=== PATIENT | female | born 1965 | race African-American/Black ===

== ENCOUNTER 2018-03-30 13:42 | Day surgery (SDC) | payer SELFPAY ==
[2018-03-26 15:11] VITALS: BMI 25.7
[2018-03-30] MEDS: HYDROmorphone HCL CARPU-JECT 1 MG/1 ML DISP.SYRIN IVPUSH PRN ×3 (13:30→14:18)
[~2018-03-30 13:42] MED LIST: BACITRACIN 15 GM TUBE TOPICAL OINTMENT ONE; BUPIVACAINE HCL/PF 2.5 MG/ML - 30 ML VIAL IJ ONE; DEXAMETHASONE SOD PHOSPHATE 4 MG/1 ML VIAL ONE; EPINEPHrine/PF 1 MG/1 ML (1:1,000) AMPULE ONE; GLYCOPYRROLATE 0.2 MG/1 ML VIAL ONE; HALOPERIDOL LACTATE 5 MG/ML ONE; HEPARIN NA (PORCINE) 5,000 UNITS/ML 1ML VIAL ONE; HYDROmorphone HCL 0.5 MG/0.5 ML SYRINGE ONE; LACTATED RINGERS SOLUTION 1,000 ML IV SCH; LIDOCAINE HCL 1%, 10 MG/ML (20ML VIAL) ONE; LIDOCAINE HCL 2% JELLY (5 ML/TUBE) ONE; LIDOCAINE HCL/PF 2% SDV 5ML VIAL ONE; MIDAZOLAM HCL 2 MG/2 ML SINGLE DOSE VIAL ONE; NEOSTIGMINE METHYLSULFATE 0.5 MG/ML - 10 ML MDV ONE; ONDANSETRON 4 MG/2 ML VIAL IVPB PRN; ONDANSETRON 4 MG/2 ML VIAL IVPUSH PRN; ONDANSETRON 4 MG/2 ML VIAL ONE; PROMETHAZINE HCL 25 MG/1 ML VIAL IVPUSH PRN; PROPOFOL 20 ML ONE; ROCURONIUM BROMIDE 50 MG/5 ML VIAL ONE; SUCCINYLCHOLINE CHLORIDE 200 MG/10 ML VIAL ONE; ceFAZolin SODIUM 1 GM VIAL ONE; fentaNYL CITRATE 250 MCG/5 ML VIAL ONE; morphine CARPU-JECT 10 MG/1 ML DISP.SYRIN IVPUSH PRN
--- NOTE | 2018-03-30 13:44 | OP ---
Operative Note - Note: Operative Date: 03/30/18 Pre-Operative Diagnosis: abdominal deformity Operation: abdominoplasty with liposuction Post-Operative Diagnosis: Same as Pre-op Anesthesia: General
[2018-03-30] MEDS ORDERED: LACTATED RINGERS SOLUTION 1,000 ML IV SCH (13:45)
[2018-03-30] MEDS ORDERED: HYDROmorphone HCL 0.5 MG/0.5 ML SYRINGE ONE ×2 (14:06→14:17)
[2018-03-30] MEDS: morphine SULFATE 4 MG/ML VIAL IVPUSH PRN ×2 (17:17→21:45)
[2018-03-30] MEDS: oxyCODONE HCL 5 MG TABLET PO PRN (19:59)
--- NOTE | 2018-03-30 20:29 | OP ---
DATE OF OPERATION: 03/30/2018 TITLE OF PROCEDURE: Abdominoplasty with bilateral flank liposuction. PREOPERATIVE DIAGNOSIS: Abdominal upper dystrophy with . POSTOPERATIVE DIAGNOSIS: Abdominal upper dystrophy with . DESCRIPTION OF PROCEDURE: The patient is seen in the holding area, awake, aware of all incisions and resulting scars. Risks, benefits, and alternatives are discussed at length, and agreed to proceed. Patient is given 5000 units of subcutaneous heparin preoperatively. 1 g of Ancef is given preoperatively. She is given ROB hose and sequential compression stockings in the holding area. Brought to the operating room, placed in a supine position. Position is carefully checked by surgical and anesthesia teams. She is prepped and draped in standard surgical fashion. A timeout is called. Patient, procedure, side and sites are verified. The procedure is as follows. An incision is made along the infra-pannicular crease, the inferior border of the marked area. Dissection carried down to the level of the abdominal wall fascia where dissection is then carried along the abdominal wall fascia where perforating blood vessels are ligated. The dissection is carried to the level of the umbilicus. The umbilicus is then circumcised and developed on a fiber fatty stalk to the level of the abdominal wall fascia. Dissection carried superior to the umbilicus, the costal margins on either side, and xiphoid process in the midline. Midline plication is then performed with a series of interrupted buried gknkux-ca-swipy number 1 Prolene, both above and below the umbilicus. A second layer of running, locking number 1 Prolene suture is also placed to reinforce the initial plication. At completion of this, the abdominoplasty flap is then trimmed of sub Hawk's underlying fat. A smooth, even contour is assured. The hemostasis meticulously achieved. The wounds are copiously irrigated with normal saline, after which a second round of hemostasis is performed. When the wound is dry, the patient is brought to a 30-degree flexed position where the excess skin and fat of the abdominoplasty flap is excised. The skin is tailor tacked. The umbilicus is marked. The umbilicus is then converted into a Star Trek pattern, where the translocation defect is excised as a Star Trek pattern with an inferior 6 o'clock flap. The inferior 6 o'clock flap of the translocation defect is then inset into the 6 o'clock notch of the umbilicus with a 4-0 nylon suture. The apices are closed with a series of interrupted 4-0 nylon suture. The remainder of the umbilicus is then closed with a buried dermal 3-0 Monocryl suture followed by a running 5-0 nylon suture. Size 10 flat ELIZABETH drains are brought out through points of the abdominal incision. The right more drain is in the superior recess. The wound on the left drain is in the inferior recess of the wound. Prior to closure, a wetting solution is infiltrated to bilateral flank. A total of 200 mL of wetting solution, which is a liter of normal saline, 1 ampule 1:100,000 epinephrine, and 20 mL of 1% lidocaine plain. After waiting 20 minutes, liposuction is performed, using a traditional liposuction technique with a 4-mm cannula on either flank. 200 mL of lipoaspirate is yielded from the left flank, which is larger, and 175 mL of lipoaspirate is yielded from the right flank. The closure is performed and had been performed during the time while awaiting for the wetting solution of the liposuction to work. This is done with a series of superficial fascial system, 2-0 Vicryl buried sutures followed by a series of interrupted buried deep dermal 3-0 Monocryl suture, followed by a running V-Loc suture within the mid dermis. The drains were secured with 2-0 silk drain sutures. All incisions are pink and viable. Drains are placed to bulb suction. The dressings were applied with Steri-Strips, ABD gauze, and abdominal binder is applied, and patient is transferred to recovery without complication in a flexed position. Rip [id number]
[2018-03-31] MEDS: oxyCODONE HCL 5 MG TABLET PO PRN ×2 (03:51→07:17)
[2018-03-31 06:10] VITALS: BP 130/80; PULSE 82; TEMP 98
[2018-03-31] MEDS ORDERED: diphenhydrAMINE HCL 25 MG CAPSULE (FP) PO ONE (06:45)
[2018-03-31] MEDS ORDERED: HEPARIN NA (PORCINE) 5,000 UNITS/ML 1ML VIAL SQ ONE (07:03)
--- NOTE | 2018-03-31 07:06 | PN ---
Progress Note (short form) - Note Progress Note: POD 1 All tissues viable, no collection VSS AF Ambulating Carmen PO OK for d/c home
[2018-03-31] MEDS ORDERED: CEFAZOLIN 1 GM/D5W 1 GM/50 ML BAG IVPB SCH (09:00)
--- NOTE | 2018-04-01 14:59 | PATH ---
Surgical Pathology Report Patient Name: KWADWO POOLE Med. Rec. #: [id number] /Age/Gender: 1965 (Age: 52) / F Account: <[id number]> Location: [facility] MED-SURG Taken: 03/30/2018 Received: 03/30/2018 Reported: 04/01/2018 Physicians: Vini Morrison Specimen(s) Received ABDOMINAL SKIN AND TISSUE Clinical History Cosmetic Final Diagnosis ABDOMINAL SKIN AND TISSUE ABDOMINOPLASTY: SKIN ADIPOSE TISSUE, DESCRIBED (GROSS EXAMINATION ONLY). Electronically Signed Ember Fonseca M.D. Gross Description Received in formalin labeled "abdominal skin and tissue," is a 1204 g, 42.0 x 20.0 x 3.5 cm aggregate of 2 holley, triangular, unoriented portions of unremarkable skin with underlying yellow, lobulated adipose tissue. Sectioning reveals unremarkable adipose tissue. No lesions are identified. No sections are submitted, gross only. 03/31/2018 saudi03/31/2018
== END 2018-03-31 08:55 | disposition home or self-care (01) ==
LOC: FASU 13:42 → FM/S 13:42 → FASU 03-31 08:55
PROVIDERS: ATTEND Plastic Surgery
PROC: 0J080ZZ Alteration of Abdomen Subcutaneous Tissue and Fascia, Open Approach (ICD-10-PCS; principal; 2018-03-30 09:40)
PROC: 0J083ZZ Alteration of Abdomen Subcutaneous Tissue and Fascia, Percutaneous Approach (ICD-10-PCS; 2018-03-30 09:40)
DX: Z41.1 Encounter for cosmetic surgery (principal)
CPT/HCPCS: 88300-TC; 94010; 94760; J1644